=== PATIENT | female | born 1980 | race African-American/Black ===

== ENCOUNTER 2016-11-24 04:06 | Emergency (ER) | payer BC ==
[~2016-11-24] VITALS: Ht 165.1 cm; Wt 66.7 kg
[2016-11-24 04:15] VITALS: BP_SYST 128
--- NOTE | 2016-11-24 04:15 | NUR ---
Patient to ER bed 7 to gown for evaluation. Side rails up. Report given to FACUNDO Madden
--- NOTE | 2016-11-24 04:16 | NUR ---
Patient AAO x4, sitting in bed, c/o cramping to abdomen. Patient states she had a miscarriage and "passes a clot at 7 pm" last night and is scheduled to have and D and C on saturday with her OBGYN Dr. Barrera. Patient denies bleeding at this time, no acute distress noted. Will continue to monitor.
--- NOTE | 2016-11-24 04:19 | NUR ---
ER at bedside examining patient.
[2016-11-24] MEDS ORDERED: NACL 0.9% 1,000 ML IV ONE (04:26)
[2016-11-24 04:57] LABS: BASOPHILS % (AUTO) 0.5 % (0.0-2.0); EOSINOPHILS # (AUTO) 0.3 K/uL (0.0-0.4); EOSINOPHILS % (AUTO) 5.1 % (0.0-4.0); HEMATOCRIT 35.9 % (36-48); HEMOGLOBIN 12.2 g/dL (12.0-16.0); LYMPHOCYTES # (AUTO) 1.1 K/uL (1.0-5.5); LYMPHOCYTES % (AUTO) 17.4 % (20.5-51.5); MEAN CORPUSCULAR HEMOGLOBIN 29 pg (27-31); MEAN CORPUSCULAR HGB CONC 34 % (32-36); MEAN CORPUSCULAR VOLUME 86 fL (79.0-98.0); MONOCYTES % (AUTO) 16.1 % (1.7-9.3); NEUTROPHILS # (AUTO) 3.7 K/uL (1.8-7.7); NEUTROPHILS % (AUTO) 60.9 % (40.0-70.0); PLATELET COUNT (AUTO) 277 K/uL (130-430); RED BLOOD CELL COUNT(AUTO) 4.16 MIL/uL (4.2-6.2); WHITE BLOOD COUNT (AUTO) 6.1 K/uL (4.8-10.8)
[2016-11-24 05:00] LABS: CALCIUM 8.5 mg/dL (8.4-11.0); CREATININE 0.83 mg/dL (0.55-1.30); POTASSIUM 3.6 mmol/L (3.5-5.1)
[2016-11-24 05:10] LABS: ALBUMIN 3.5 g/dL (3.4-4.8); TOTAL BILIRUBIN 0.2 mg/dL (0.0-1.0)
--- NOTE | 2016-11-24 05:28 | NUR ---
Pt wheeled to US by tech
--- NOTE | 2016-11-24 05:55 | NUR ---
Patient ambulated to bathroom, tolerated well. No acute distress noted. Will continue to monitor.
[2016-11-24 06:15] VITALS: BP_SYST 125
--- NOTE | 2016-11-24 06:15 | NUR ---
Patient given written and verbal discharge instructions and verbalizes understanding. ER MD discussed with patient the results and treatment provided. Patient in stable condition. ID arm band removed. IV catheter removed intact and dressing applied, no active bleeding. No Rx of given. Patient educated on pain management and to follow up with PMD. Pain Scale 0/10. Opportunity for questions provided and answered.
== END 2016-11-24 06:15 | disposition home or self-care (01) ==
LOC: SED 04:06
DX: O03.9 Complete or unspecified spontaneous abortion without complication (principal); R03.0 Elevated blood-pressure reading, without diagnosis of hypertension; Z3A.01 Less than 8 weeks gestation of pregnancy; Z88.1 Allergy status to other antibiotic agents
CPT/HCPCS: 36415; 76817; 80053; 84702; 85025; 86901; 96360; 99285; J7030

== ENCOUNTER 2016-11-26 13:24 | Day surgery (SDC) | payer BC ==
[~2016-11-26] VITALS: Ht 165.1 cm; Wt 66.7 kg
[2016-11-26] MEDS ORDERED: SEVOFLURANE 15 MIN GAS INH ONE (14:50)
[2016-11-26] MEDS ORDERED: KETOROLAC TROMETHAMINE 30 MG VIAL IVP ONE (14:50)
[2016-11-26] MEDS ORDERED: LR 1,000 ML IV.SOLN IV ONE (14:50)
[2016-11-26] MEDS ORDERED: ONDANSETRON HCL 4 MG/2 ML VIAL IVP ONE (14:50)
[2016-11-26] MEDS ORDERED: NS IRRIG SOLN 1000 ML IR ONE (14:50)
[2016-11-26] MEDS ORDERED: MIDAZOLAM HCL 5 MG/5 ML VIAL IVP ONE (14:50)
[2016-11-26] MEDS ORDERED: PROPOFOL 200MG/ 20ML VIAL (DIPRIVAN) IV ONE (14:50)
[2016-11-26] MEDS ORDERED: CEFAZOLIN 1 GM IVPB PREMIX 50 ML IV ONE (14:50)
[2016-11-26] MEDS ORDERED: fentaNYL CITRATE/PF 100 MCG/2 ML AMP IVP ONE (14:50)
[2016-11-26] MEDS ORDERED: MORPHINE 4 MG/ML INJ. SYRINGE IVP PRN ×3 (15:00)
[2016-11-26] MEDS ORDERED: LR 1,000 ML IV SCH (15:00)
[2016-11-26] MEDS ORDERED: METOCLOPRAMIDE HCL 10 MG/2 ML VIAL IVP PRN (15:00)
[2016-11-26] MEDS ORDERED: ONDANSETRON HCL 4 MG/2 ML VIAL IVP PRN (15:30)
[2016-11-26 16:15] VITALS: BP_SYST 128
== END 2016-11-26 17:15 | disposition home or self-care (01) ==
LOC: CANPRESDC → SDS 13:24
PROVIDERS: ATTEND Specialist
DX: O03.4 Incomplete spontaneous abortion without complication (principal); Z88.8 Allergy status to other drugs, medicaments and biological substances
CPT/HCPCS: 36415; 59812; 86900; 86901; 88305; J0690; J1885; J2250; J2405; J2704; J3010; J7120

== ENCOUNTER 2016-12-06 12:41 | Outpatient (CLI) | payer BC ==
[2016-12-06] MEDS ORDERED: IOHEXOL 50 ML IV ONE (14:34)
== END 2016-12-06 20:42 | disposition home or self-care (01) ==
LOC: SRD 12:41
PROVIDERS: ATTEND Specialist
DX: D25.9 Leiomyoma of uterus, unspecified (principal); N97.1 Female infertility of tubal origin
CPT/HCPCS: 74740; C1751; Q9967